=== PATIENT | male | born 1955 | race Caucasian/White ===

== ENCOUNTER → 2022-02-17 | Outpatient (CLI) | payer OTHER ==
--- NOTE | 2022-02-17 13:43 | US ---
EXAMINATION TYPE: US venous doppler duplex LE LT DATE OF EXAM: 02/17/2022 1:33 PM COMPARISON: NONE CLINICAL HISTORY: R60.0 edema. swelling with fever for 1 day, no h/o dvt SIDE PERFORMED: Left TECHNIQUE: The lower extremity deep venous system is examined utilizing real time linear array sonog collin with graded compression, doppler sonography and color-flow sonography. VESSELS IMAGED: Common Femoral Vein Deep Femoral Vein Greater Saphenous Vein * Femoral Vein Popliteal Vein Small Saphenous Vein * Proximal Calf Veins (* superficial vessels) Left Leg: Negative for DVT- rouleaux flow within popiteal vein IMPRESSION: No evidence for DVT at this time.
== END | disposition home or self-care (01) ==
LOC: RADUSWWP 13:12
PROVIDERS: ATTEND Family Medicine
DX: R60.0 Localized edema (principal)